=== PATIENT | female | born 1995 | race Caucasian/White ===

== ENCOUNTER 2017-05-21 00:31 | Inpatient (IN) | payer OTHER ==
[2017-05-21] VITALS (7 sets, daily range): BP systolic 96–141; BP diastolic 53–100
[~2017-05-21] VITALS: Ht 172.7 cm; Wt 56.2 kg
--- NOTE | 2017-05-21 01:00 | NUR ---
Pre-admission assessment Pre-admission assessment performed in the intake department of [facility]. Pt is A&O x4 and ambulatory with a steady gait. She does not appear intoxicated and answers all questions appropriately. Vital signs are B/P 116/64, HR 81, RR 16, O2 sat 98%, T 98.0, pain 0/10. She denies food or drug allergies. 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 Last used xanax 8mg on 05/20 at 2130. [facility].
[2017-05-21 01:25] LABS: *AMPHETAMINE, URINE NEGATIVE (NEGATIVE); *BARBITURATE, URINE NEGATIVE (NEGATIVE); *CANNABINOID, URINE POSITIVE (NEGATIVE); *COCCAINE, URINE NEGATIVE (NEGATIVE); *OPIATE, URINE NEGATIVE (NEGATIVE); *PHENCYCLIDINE SCREEN,URINE NEGATIVE (NEGATIVE); *URINE HCG, QUAL NEGATIVE (NEGATIVE)
[2017-05-21] MEDS ORDERED: LOPERAMIDE HCL 2 MG CAPSULE PO PRN ×2 (02:15)
[2017-05-21] MEDS ORDERED: ACETAMINOPHEN 325 MG TABLET PO PRN (02:15)
[2017-05-21] MEDS ORDERED: ONDANSETRON ODT 4 MG TAB.RAPDIS SL PRN (02:15)
[2017-05-21] MEDS ORDERED: IBUPROFEN 400 MG TABLET PO PRN (02:15)
[2017-05-21] MEDS ORDERED: HYDROXYZINE PAMOATE 25 MG CAPSULE PO PRN (02:15)
[2017-05-21] MEDS ORDERED: LORAZEPAM 1 MG TABLET PO PRN ×2 (02:15)
[2017-05-21] MEDS ORDERED: ONDANSETRON 4 MG/2 ML VIAL IM PRN (02:15)
[2017-05-21] MEDS ORDERED: MAGNESIUM HYDROXIDE 30 ML LIQUID UDC PO PRN (02:15)
[2017-05-21] MEDS ORDERED: LORAZEPAM 2 MG/1 ML VIAL IM PRN (02:15)
[2017-05-21] MEDS ORDERED: MAG HYDROX/AL HYDROX/SIMETH 30 ML LIQUID UDC PO PRN (02:15)
[2017-05-21] MEDS ORDERED: MIRALAX 17 GM POWD.PACK PO PRN (02:15)
[2017-05-21] MEDS ORDERED: DICYCLOMINE HCL 20 MG TABLET PO PRN (02:15)
[2017-05-21 02:28] LABS: BASOPHILS % (AUTO) 0.5 % (0.0-2.0); EOSINOPHILS # (AUTO) 0.2 K/uL (0.0-0.7); EOSINOPHILS % (AUTO) 2.4 % (0.0-7.0); HEMATOCRIT 38.8 % (37-47); LYMPHOCYTES # (AUTO) 3.8 K/UL (0.8-4.8); LYMPHOCYTES % (AUTO) 41.9 % (20.5-74.5); MEAN CORPUSCULAR HEMOGLOBIN 29.8 UUG (27.0-31.0); MEAN CORPUSCULAR HGB CONC 33 g/dL (32.0-37.0); MEAN CORPUSCULAR VOLUME 89.4 FL (81.0-99.0); MONOCYTES # (AUTO) 0.6 K/UL (0.1-1.30); MONOCYTES % (AUTO) 7.1 % (0-11); NEUTROPHILS # (AUTO) 4.5 K/UL (1.8-8.9); NEUTROPHILS % (AUTO) 48.1 % (31.5-64.5); PLATELET COUNT (AUTO) 282 K/UL (150-450); RED BLOOD CELL COUNT(AUTO) 4.34 MIL/UL (4.2-5.4); WHITE BLOOD COUNT (AUTO) 9.1 K/UL (4.0-11.2)
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
[2017-05-21] MEDS: diphenhydrAMINE 50 MG CAPSULE PO PRN (03:01)
--- NOTE | 2017-05-21 03:02 | NUR ---
PRN Vistaril and Benadryl administered Pt c/o feeling anxious and unable to relax to fall asleep. She is walking in the halls. COWS 4. PRN Benadryl and Vistaril administered.
[2017-05-21] MEDS ORDERED: HYDROXYZINE PAMOATE 25 MG CAPSULE ONE (03:04)
[2017-05-21] MEDS ORDERED: diphenhydrAMINE 50 MG CAPSULE ONE (03:04)
--- NOTE | 2017-05-21 04:02 | NUR ---
PRN Vistaril and Benadryl reassessment PRN Vistaril and Benadryl effective. Pt is lying comfortably in bed with lights off. She states "I'm feeling much better, thanks."
[2017-05-21 04:29] LABS: ETHANOL < 3 MG/DL (0-0)
[2017-05-21 04:35] LABS: ALANINE AMINOTRANSFERASE 24 U/L (14-59); ALKALINE PHOSPHATASE 55 U/L (50-136); AMYLASE 178 U/L (25-115); ASPARTATE AMINOTRANSFERASE 22 U/L (15-37); BILIRUBIN,TOTAL 0.2 mg/dL (0.2-1.0); CARBON DIOXIDE 28 mmol/L (21-32); CHLORIDE 104 mmol/L (98-107); CREATININE 0.8 mg/dL (0.6-1.3); GLUCOSE 92 mg/dL (74-106); LIPASE 161 U/L (73-393); MAGNESIUM 1.9 mg/dL (1.8-2.4); POTASSIUM 3.8 mmol/L (3.5-5.1); TOTAL PROTEIN, SERUM 7.2 g/dL (6.4-8.2); UREA NITROGEN, BLOOD 17 mg/dL (7-18)
[2017-05-21 04:46] LABS: THYROID STIMULATING HORMONE 3.279 mIU/mL (0.358-3.740)
[2017-05-21] MEDS ORDERED: ALBU2.5V38 IH (04:59)
--- NOTE | 2017-05-21 07:28 | NUR ---
END OF SHIFT Report provided to day shift nurse. Pt is lying in bed resting. She is a 21 yo female admitted to [facility] today at 0110 for BZD dependence. She is A&O and ambulatory. NKA, full code, regular diet. PRN Vistaril and Benadryl administered. Last CIWA was 1. She drank 500mL and slept for 2 hours.
--- NOTE | 2017-05-21 07:45 | NUR ---
START OF SHIFT Rcvd endorsement from ongoing nurse, clients is in bed, she presents with depressed mood, flat affect, skin moist/warm to touch, enlarged pupils,, flushed face, she reports restless legs and stomach cramps and decreased appetite. Encouraged client to drink fluid as tolerated to facilitate detox. Encourage client to attend group therapy for skills to maintain sobriety. Client admitted for Benzodiazepine withdrawal, She reports hx of withdrawal-induced seizure (2 wks ago). PRN Vistaril for anxiety and Benadryl for inability to sleep, client slept 2 hrs. Last COWS 1. NKDA, full code, regular diet. Call light within reach. Side rails x 2 up/padded. Will continue to monitor client.
[2017-05-21] MEDS ORDERED: DIAZEPAM 10 MG TABLET PO PRN ×4 (08:45→13:00)
[2017-05-21] MEDS ORDERED: DIAZEPAM 5 MG TABLET PO PRN ×2 (08:45→13:00)
[2017-05-21] MEDS ORDERED: GABAPENTIN 300 MG CAPSULE PO SCH (09:00)
[2017-05-21] MEDS: DIAZEPAM 10 MG TABLET PO SCH ×4 (09:46→20:48)
[2017-05-21] MEDS: MULTIVITAMINS,THERAPEUTIC TABLET PO SCH (09:46)
[2017-05-21] MEDS ORDERED: ALBUTEROL SULFATE 2.5 MG/3 ML NEBU IH PRN (10:41)
[2017-05-21] MEDS ORDERED: ALBUTEROL SULFATE 2.5 MG/3 ML NEBU IH SCH (10:45)
--- NOTE | 2017-05-21 11:12 | NUR ---
Therapist prompted client about group times. Client stated she would try to attend the 1530 group.
[2017-05-21] MEDS: GABAPENTIN 300 MG CAPSULE PO SCH (14:37)
--- NOTE | 2017-05-21 19:00 | NUR ---
END OF SHIFT Will endorse client to incoming nurse, client continues on 1 out of 5 day Valium taper, to alleviate withdrawal symptoms of withdrawal from benzodiazepine. Last CIWA 10. Client with anxiety, irritability, chills, fatigue, flushed face, abdominal cramps, emotional instability. Client continue to present with anxious mood, flat affect. Client was compliant with 2/3 of group therapy. Client is fully ambulatory. Adequate intake 755mL, void x 1. Pelvis/Transvaginal US done due to persistent vaginal bleeding starting on Jan 12, no results yet, client tolerated well. Client's vitals WNL's, she denied any dizziness. Hx of withdrawal-induced seizure (2 weeks ago). Call light within reach reach. Safety measures rendered and all needs met.
--- NOTE | 2017-05-21 20:15 | NUR ---
START OF SHIFT NOTE Pt is a 21 y/o female admitted for Xanax and Marijuana use and dependence. Pt has NKA but reported a PMH of Asthma, seizures r/t w/d, suicide, eating disorder, chlamydia, borderline personality disorder, manic bipolar, major depression, and anxiety. Per day shift nurse pt was placed on a 5 day Valium taper (day 1) and is tolerating medication well, with no s/e or a/r reported. Pt didn't receive any PRNS during the day shift. Last CIWA: 10. At this time pt is in her room. Pt is a/o x 4 with no changes in LOC. Lung auscultations are clear in all lobes, skin is dry and intact, bowel sounds present in all 4 quadrants, skon turgor indicates adequate hydration. During assessment pt is notably depressed aeb crying. Pt was encouraged to express her feelings and concerns. Pt was able to effectively verbalize her feelings and concerns and in return received proper nursing care including 1 on 1 therapy. Pt denies any pain/discomfort at this time. Pt was encouraged to continue expressing needs and concerns. Pt verbalized an understanding. All safety measures in place. Will continue to monitor.
[2017-05-21] MEDS: CLONIDINE HCL 0.1 MG TABLET PO PRN (20:48)
--- NOTE | 2017-05-21 20:48 | NUR ---
CLONIDINE PRN ADMINISTRATION Pt's blood pressure is 138/100. Pt denies any pain/discomfort, headache, nausea/vomiting, dizziness, or blurred vision. Pt received Clonidine 0.1 mg PO PRN to get blood pressure back within normal limits. Will continue to monitor.
--- NOTE | 2017-05-21 21:48 | NUR ---
CLONIDINE PRN REASSESSMENT Blood pressure now 136/88. PRN effective. Will continue to monitor.
[2017-05-22] VITALS: BP 98/58
[2017-05-22 04:00] VITALS: BP 107/69
[2017-05-22] MEDS: CLONIDINE HCL 0.1 MG TABLET PO PRN (04:44)
--- NOTE | 2017-05-22 04:44 | NUR ---
MOTRIN, BENTYL , AND CLONIDINE PRN ADMINISTRATION Pt reported a headache, stomach cramps, and anxiety. Motrin 400 mg PO PRN, Bentyl 20 mg PO PRN, and Clonidine 0.1 mg PO PRN was given via charge nurse. Will monitor for effectiveness.
--- NOTE | 2017-05-22 05:44 | NUR ---
MOTRIN, BENTYL, AND CLONIDINE PRN REASSESSMENT Pt stated " I'm okay now. I'm going back to sleep." PRNS effective. Will continue to monitor.
[2017-05-22 06:06] LABS: HEPATITIS B SURFACE AG Negative (Negative)
--- NOTE | 2017-05-22 06:53 | NUR ---
END OF SHIFT NOTE Pt is a 21 y/o female admitted for Xanax and Marijuana use and dependence. Pt has NKA but reported a PMH of Asthma, seizures r/t w/d, suicide, eating disorder, chlamydia, borderline personality disorder, manic bipolar, major depression, and anxiety. Pt continues on a 5 day Valium taper (day 2) and is tolerating medication well, with no s/e or a/r reported. Pt received Motrin 400 mg PO PRN, Bentyl 20 mg PO PRN, and Clonidine 0.1 mg PO PRN x 2 during the shift. Last CIWA: 3 (0400). Pt slept for a total of 7 hours. All safety measures in place. Endorsed to the oncoming nurse.
--- NOTE | 2017-05-22 07:45 | NUR ---
START OF SHIFT Rcvd endorsement from ongoing nurse, clients is in bed, she presents with anxious mood, flat affect, flushed face, she denies any N/V/D and reports restless legs, stomach cramps, irritability and fatigue. Encouraged client to drink fluid as tolerated to facilitate detox. Encourage client to attend group therapy for skills to maintain sobriety. Client admitted for Benzodiazepine withdrawal, She is on 2nd of 5 day Valium taper, tolerating well. She reports hx of withdrawal-induced seizure (2 wks ago). PRN Clonidine for anxiety and Bentyl for abdominal cramps, for inability to sleep, client slept 2 hrs. Last COWS 3 @ 0400. NKDA, full code, regular diet. Call light within reach. Side rails x 2 up/padded. Will continue to monitor client. Addendum: 05/23/17 at 0805 by DELVIN OTERO RN SERENA 3, NOT COWS, CLIENT IS ADMITTED FOR BENZODIAZEPINE WITHDRAWAL
[2017-05-22] MEDS: MULTIVITAMINS,THERAPEUTIC TABLET PO SCH (08:12)
[2017-05-22] MEDS: DIAZEPAM 10 MG TABLET PO SCH ×3 (08:12→21:14)
[2017-05-22] MEDS: GABAPENTIN 300 MG CAPSULE PO SCH ×3 (08:12→21:14)
[2017-05-22 08:14] VITALS: BP 119/76
[2017-05-22 08:36] LABS: BASOPHILS # (AUTO) 0.1 K/uL (0.0-8.0); BASOPHILS % (AUTO) 0.7 % (0.0-2.0); EOSINOPHILS # (AUTO) 0.2 K/uL (0.0-0.7); HEMATOCRIT 41.9 % (37-47); HEMOGLOBIN 13.8 G/DL (12.0-16.0); LYMPHOCYTES % (AUTO) 44.2 % (20.5-74.5); MEAN CORPUSCULAR HEMOGLOBIN 29.4 UUG (27.0-31.0); MEAN CORPUSCULAR HGB CONC 33 g/dL (32.0-37.0); MEAN CORPUSCULAR VOLUME 89.3 FL (81.0-99.0); MONOCYTES # (AUTO) 0.7 K/UL (0.1-1.30); MONOCYTES % (AUTO) 7.2 % (0-11); NEUTROPHILS # (AUTO) 4.1 K/UL (1.8-8.9); NEUTROPHILS % (AUTO) 45.9 % (31.5-64.5); PLATELET COUNT (AUTO) 317 K/UL (150-450); WHITE BLOOD COUNT (AUTO) 9.1 K/UL (4.0-11.2)
[2017-05-22] MEDS ORDERED: TUBERCULIN,PURIF.PROT.DERIV. 5 TU/0.1 ML TEST ID ONE (09:00)
--- NOTE | 2017-05-22 09:36 | NUR ---
TB test administered to L F/A, client tolerated well.
--- NOTE | 2017-05-22 10:00 | NUR ---
MD Notification US Pelvis, due to Vaginal bleeding, impression: 3cm right ovarian cyst otherwise normal pelvic ultrasound. NNO at this time. Client reports light vaginal bleeding, Vitals WNL, client denies any dizziness.
[2017-05-22] MEDS ORDERED: DIAZEPAM 10 MG TABLET PO ONE (11:45)
[2017-05-22 12:42] VITALS: BP 126/74
--- NOTE | 2017-05-22 15:56 | NUR ---
During assessment therapist prompted client about group times. Client stated she would try to go to the afternoon group.
[2017-05-22 16:44] VITALS: BP 119/85
--- NOTE | 2017-05-22 16:55 | NUR ---
Therapist prompted client to attend daily groups, and was reminded about group times. Client stated she would try to attend.
--- NOTE | 2017-05-22 18:08 | NUR ---
END OF SHIFT Will endorse client to incoming nurse, client continues on Valium taper, 2nd of 5 day, tolerating well. Client was admitted for withdrawal from benzodiazepine. Last CIWA 5. Client with anxiety, sweats, fine tremors and decreased appetite. Client continue to present with depressed mood, flat affect. Client was compliant with 2/3 of group therapy. Client is fully ambulatory. Adequate intake 755mL, void x 1. US Pelvis, due to Vaginal bleeding starting on Jan 12, '17, , impression: 3cm right ovarian cyst otherwise normal pelvic ultrasound. NNO at this time. Client reports light vaginal bleeding, Vitals WNL, client denies any dizziness. Hx of withdrawal-induced seizure (2 weeks ago). Call light within reach reach. Safety measures rendered and all needs met.
--- NOTE | 2017-05-22 19:05 | NUR ---
Start of Shift Patient received. Patient is in activities room participating in group meeting. Patient is a 21 year old male admitted on 05/21/17 for Benzo Dependence under the care of Dr. Luis. Patient is currently receiving 5 day Valium. Patient verbalizes no known allergies, wishes to be full code, following a regular diet, placed on fall and seizure precautions, skin noted intact. Past medical history noted as Asthma, seizure (11/2016 and two weeks ago), suicide attempt at the age of 16, Eating disorder, History of Chlamydia, borderline personality Disorder, manic Depression, Anxiety. Per endorsement, patient was given onetime dose of Valium 10mg x1. US Pelvis was ordered due to Vaginal bleeding starting on Dec 2016 which resulted with 3cm right ovarian cyst otherwise normal pelvic ultrasound. No New Orders at this time. Client reports light vaginal bleeding, Vitals WNL, client denies any dizziness. Patients last CIWA noted to be 5. All needs attended to promptly. Will continue plan of care as ordered.
[2017-05-22 20:00] VITALS: BP 103/71
[2017-05-22] MEDS ORDERED: GABAPENTIN 300 MG CAPSULE PO SCH (21:00)
[2017-05-23 00:27] VITALS: BP 127/83
[2017-05-23] MEDS: diphenhydrAMINE 50 MG CAPSULE PO PRN (01:12)
--- NOTE | 2017-05-23 01:15 | NUR ---
PRN Medication Administration Patient verbalizing inability of falling asleep. PRN Benadryl ordered. Offered to patient and patient verbalizing "is this a joke. I come in here taking all the benzos that i was and you give me one tab of Benadryl for sleep. this is not going to work." allowed patient to verbalize her feelings and offered support. patient agreed and took medication. will continue to monitor.
[2017-05-23 04:38] VITALS: BP 106/75
--- NOTE | 2017-05-23 07:05 | NUR ---
End of Shift Patient is in bed sleeping. Breathing even and non labored. No signs of pain or discomfort. Patient is a 21 year old male admitted on 05/21/17 for Benzo Dependence under the care of Dr. Luis. Patient is currently receiving 5 day Valium. Patient verbalizes no known allergies, wishes to be full code, following a regular diet, placed on fall and seizure precautions, skin noted intact. Past medical history noted as Asthma, seizure (11/2016 and two weeks ago), suicide attempt at the age of 16, Eating disorder, History of Chlamydia, borderline personality Disorder, manic Depression, Anxiety. Patient was given PRN Benadryl for inability of falling asleep. Medicaiton noted to be effective. Patient is requesting for MD to review sleep medications due to patient does not feel rested. Patients last CIWA noted to be 2. All needs attended to promptly. Will endorse to continue plan of care as ordered.
--- NOTE | 2017-05-23 07:58 | NUR ---
START OF SHIFT Rcvd endorsement from ongoing nurse, clients is in bed, she presents with irritable mood, flat affect, she states, "I had a horrible night, I was not able to sleep, you better do something different tonight." Skin moist to touch, she denies any N/V/D. She denies any SI/HI. Encouraged client to eat small portions of food and to increase fluid intake as tolerated. Encourage client to attend group therapy for skills to maintain sobriety. Client admitted for Benzodiazepine withdrawal, She is on 3rd of 5 day Valium taper, tolerating well. She reports hx of withdrawal-induced seizure (2 wks ago). PRN Benadryl for inability to sleep, client slept 4 hrs. Last CIWA 2 @ 2400. NKDA, full code, regular diet. Call light within reach. Side rails x 2 up/padded. Will continue to monitor client.
[2017-05-23 08:06] VITALS: BP 118/73
[2017-05-23] MEDS: DIAZEPAM 5 MG TABLET PO SCH ×4 (09:46→21:48)
[2017-05-23] MEDS: GABAPENTIN 300 MG CAPSULE PO SCH ×3 (09:46→21:48)
[2017-05-23] MEDS: MULTIVITAMINS,THERAPEUTIC TABLET PO SCH (09:47)
[2017-05-23] MEDS: DIVALPROEX 250 MG TABLET.DR PO SCH ×3 (11:43→16:22)
[2017-05-23 12:59] VITALS: BP 128/94
[2017-05-23] MEDS: CLONIDINE HCL 0.1 MG TABLET PO SCH ×2 (14:59→21:48)
[2017-05-23 16:55] VITALS: BP 104/72
--- NOTE | 2017-05-23 17:50 | NUR ---
Nursing notes Client reports itchiness on back, noted raised rash, skin intact, encourage client to not scratch site, she verbalized understanding. Notified MD and Charge nurse.
[2017-05-23] MEDS ORDERED: diphenhydrAMINE 2% 28.4 GM CREAM TP PRN (18:15)
[2017-05-23] MEDS ORDERED: diphenhydrAMINE 50 MG CAPSULE PO ONE (18:15)
[2017-05-23] MEDS ORDERED: HYDROXYZINE PAMOATE 25 MG CAPSULE PO PRN (18:15)
--- NOTE | 2017-05-23 18:25 | NUR ---
Dr. Mancia ordered Benadryl 50mg one time dose for pruritus and Diphenhydramine 2% cream PRN BID for itching on back area
--- NOTE | 2017-05-23 19:05 | NUR ---
Start of Shift Patient received. Patient is in bed sleeping. Breathing even and non labored. No signs of pain or discomfort. Patient is a 21 year old male admitted on 05/21/17 for Benzo Dependence under the care of Dr. Luis. Patient is currently receiving 5 day Valium. Patient verbalizes no known allergies, wishes to be full code, following a regular diet, placed on fall and seizure precautions, skin noted intact. Past medical history noted as Asthma, seizure (11/2016 and two weeks ago), suicide attempt at the age of 16, Eating disorder, History of Chlamydia, borderline personality Disorder, manic Depression, Anxiety. Per endorsement, patient was seen and evaluated by MD with changes to medications. Neurontin doses with increased and Clonidine changed to routine. Patient was given onetime dose of Benadryl and new order for Benadryl cream, Depakote TID. Last noted CIWA is 5. All needs attended to promptly. Will continue plan of care as ordered.
--- NOTE | 2017-05-23 19:07 | NUR ---
END OF SHIFT Will endorse client to incoming nurse, client continues on Valium taper, 3rd of 5 day, tolerating well. Client was admitted for withdrawal from benzodiazepine. Last CIWA 5 @ 1700. Dr Hu started depakote 250 mgs TID after discussing risks-benefits. Blanche ordered Benadryl 50mg one time dose for pruritus and Diphenhydramine 2% cream PRN BID for itching on back area. Increased Gabapentin 600 mg PO BID + 900 mg PO qHS, Clonidine 0.1 mg PO TID for hyperadrenergic symptoms of withdrawal; hold for BP<100/70 HR<70 or sedation. Client with anxiety, emotional, sweats, fine tremors and decreased appetite. Client continue to present with depressed mood, flat affect. Client was compliant with 2/3 of group therapy. Client is fully ambulatory. Adequate intake 1651mL, void x 3, stool x 1. She reports no vaginal bleeding today. Hx of withdrawal-induced seizure (2 weeks ago). Call light within reach reach. Safety measures rendered and all needs met.
[2017-05-23 21:10] VITALS: BP 100/65
[2017-05-24 00:20] VITALS: BP 110/62
[2017-05-24 04:00] VITALS: BP 102/61
--- NOTE | 2017-05-24 07:06 | NUR ---
End of Shift Patient is in bed sleeping. Breathing even and non labored. No signs of pain or discomfort noted. Patient is a 37 year old male admitted 05/21/17 for ETOH and Benzo Dependence. Patient verbalizes no known allergies, full code, regular diet, skin noted intact, placed on fall and seizure precautions. Patient was placed on a 5 day Ativan taper and modified 3 day Subutex taper. Patient noted with a past medical history of HTN and insomnia. No PRN medications administered. Last CIWA noted is 4 and COWS noted 4. All needs attended to promptly. Will endorse to continue plan of care as ordered. Addendum: 05/24/17 at 0708 by ELIEZER FRANCIS LVN ENTERED IN ERROR: WRONG PATIENT
--- NOTE | 2017-05-24 07:09 | NUR ---
End of Shift Patient is in bed sleeping. Breathing even and non labored. No signs of pain or discomfort. Patient is a 21 year old female admitted on 05/21/17 for Benzo Dependence under the care of Dr. Luis. Patient is currently receiving 5 day Valium. Patient verbalizes no known allergies, full code, regular diet, placed on fall and seizure precautions, skin noted intact. Past medical history noted as Asthma, seizure (11/2016 and two weeks ago), suicide attempt at the age of 16, Eating disorder, History of Chlamydia, borderline personality Disorder, manic Depression, Anxiety. No PRN medications administered. Patients last CIWA noted to be 4. All needs attended to promptly. Will endorse to continue plan of care as ordered.
--- NOTE | 2017-05-24 07:56 | NUR ---
START OF SHIFT NOTE Received report from night nurse, 21 year old male admitted on 05/21/17 for Benzo Dependence. Patient is currently receiving 5 day Valium. Patient verbalizes no known allergies, Full code,Regular diet, fall and seizure precautions in place, Pt reported PMH of Asthma, seizure (11/2016 and two weeks ago), suicide attempt at the age of 16, Eating disorder, History of Chlamydia, borderline personality Disorder, manic Depression, Anxiety. pt cont with Valium taper. Per endorsement pt did not receive any PRN, Last CIWA-4, Slept for 8 hours. Patient received awake, alert and oriented x4, educated regarding plan of care for the day and medication regimen with good verbal understanding. Safety measures in place. Will cont to monitor.
[2017-05-24 08:00] VITALS: BP 112/66
[2017-05-24] MEDS: DIAZEPAM 5 MG TABLET PO SCH ×3 (08:59→21:53)
[2017-05-24] MEDS: GABAPENTIN 300 MG CAPSULE PO SCH ×3 (08:59→21:53)
[2017-05-24] MEDS: MULTIVITAMINS,THERAPEUTIC TABLET PO SCH (08:59)
[2017-05-24] MEDS: CLONIDINE HCL 0.1 MG TABLET PO SCH ×3 (09:00→21:53)
[2017-05-24] MEDS: DIVALPROEX 250 MG TABLET.DR PO SCH ×3 (09:00→16:50)
[2017-05-24 12:00] VITALS: BP 116/75
[2017-05-24 16:00] VITALS: BP 94/60
--- NOTE | 2017-05-24 19:05 | NUR ---
END OF SHIFT NOTE Endorsed Pt to yoke presser nurse. Patient is AOX4. 21 year old male admitted on 05/21/17 for Benzo Dependence. Patient is currently receiving 5 day Valium. Patient verbalizes no known allergies, Full code,Regular diet, fall and seizure precautions in place, Pt reported PMH of Asthma, seizure (11/2016 and two weeks ago), suicide attempt at the age of 16, Eating disorder, History of Chlamydia, borderline personality Disorder, manic Depression, Anxiety. Pt cont with Valium taper tolerating well. Pt did not receive any PRN medications. Last CIWA-2. Patient encouraged to attend group therapies/sessions to learn new coping skills to prevent relapse, patient denies SI/HI. Safety measures in place. Call light kept within reach. Patient endorsed to yoke presser nurse in stable condition.
[2017-05-24 20:00] VITALS: BP 126/74
--- NOTE | 2017-05-24 20:00 | NUR ---
Start of Shift Pt is a 21 year old female admitted for Benzo dependnece, placed on 5 day Valium taper. Pt reported consuming Xanax 16-26mg/daily for 7 months. Pt also reported use of Marijuana. PMH: Asthma, seizures, suicide attempt at age 16, eating disorder, chlamydia (treated), borderline personality DO, Manic Bipolar, major depression and anxiety. NKA, regular diet, fall/seizure precautions and full code. Upon assessment, pt presents with anxiety, is in emotional volatility, skin noted with moderate sweat, reports mild chills, respirations even/unlabored, denies SOB/chest pain, bowel sounds active x4, abdomen soft. Safety measures in place, call light within reach, side rails up x2, bed locked and in low position. Will continue to monitor.
[2017-05-25] VITALS: BP 103/64
--- NOTE | 2017-05-25 | NUR ---
Vital Signs BP 103/64, pulse 63, respirations 16, SpO2 98%, temp 97.8, no pain rated 0/10 CIWA deferred d/t pt sleeping - to assess while pt is sleeping as ordered. Safety measures in place. Will continue to monitor.
[2017-05-25 04:00] VITALS: BP 95/56
--- NOTE | 2017-05-25 04:00 | NUR ---
Vital Signs BP 95/56, pulse 62, respirations 14, SpO2 98%, temp 97.9, no pain rated 0/10 CIWA deferred d/t pt sleeping - to assess while pt is sleeping as ordered. Safety measures in place. Will continue to monitor.
--- NOTE | 2017-05-25 07:00 | NUR ---
End of Shift Pt is a 21 year old female admitted for Benzo dependence, placed on 5 day Valium taper. Pt reported consuming Xanax 16-26mg/daily for 7 months. Pt also reported use of Marijuana. PMH: Asthma, seizures, suicide attempt at age 16, eating disorder, chlamydia (treated), borderline personality DO, Manic Bipolar, major depression and anxiety. NKA, regular diet, fall/seizure precautions and full code. During shift, pt presented with anxiety, is in emotional volatility, skin noted with moderate sweat, reports mild chills - scheduled taper medications administered, effective in management of s/s of withdrawal as reported per pt, CIWA 4. No PRN medications administered during shift. Pt slept for 4 hours, intake of 1086 ml PO, voids x1 and stool x0. Safety measures in place, call light within reach, side rails up x2, bed locked and in low position. Will continue to monitor.
--- NOTE | 2017-05-25 07:31 | NUR ---
BEGINNING OF SHIFT Patient endorsement report received from trauma counsellor nurse, all pertinent information discussed. Patient is a 21 year old female admitted on: 05/21/2017, with admitting Dx: BZO dependence, Patient currently with ongoing taper of 5 day Valium, and is on day 4 of taper. will monitor cow/ciwa scores and vital signs closely. As per trauma counsellor patient received no PRNs during shift. fall and seizure precautions observed closely at all times. Patient slept for 4 hours., as per trauma counsellor last ciwa score of: 2. Patient received, awake alert and oriented x4. Educated regarding plan of care for the day and medication regimen. Safety measures in place. Fall and seizure precautions observed at all times. Will continue to monitor closely.
[2017-05-25 08:22] VITALS: BP 97/60
--- NOTE | 2017-05-25 09:06 | NUR ---
Therapist prompted client about group times. Client stated she would attend both therapy groups.
[2017-05-25] MEDS: DIVALPROEX 250 MG TABLET.DR PO SCH ×3 (09:29→16:30)
[2017-05-25] MEDS: DIAZEPAM 5 MG TABLET PO SCH ×2 (09:30→21:17)
[2017-05-25] MEDS: MULTIVITAMINS,THERAPEUTIC TABLET PO SCH (09:30)
[2017-05-25] MEDS: CLONIDINE HCL 0.1 MG TABLET PO SCH ×3 (09:33→21:16)
[2017-05-25] MEDS: GABAPENTIN 300 MG CAPSULE PO SCH ×3 (09:37→21:16)
[2017-05-25 12:30] VITALS: BP 139/97
[2017-05-25 16:23] VITALS: BP 130/89
--- NOTE | 2017-05-25 16:57 | NUR ---
Endorsement received from previous nurse.
--- NOTE | 2017-05-25 16:57 | NUR ---
ENDORSED CARE Patient alert and oriented x4, vital signs were stable during shift. Patient with admitting Dx: BZO dependence, currently with ongoing taper OF 5 day Valium and is currently on day 4 of taper, well tolerated, no ASE noted. continues under close observation. Patient compliant with therapeutic plan of care. During shift, patient was noted with one episodes of tearfulness, encouraged to express feeling, provided with calming reassurance with help. Patient 0900 assessment presented with: barely sweating, anxiety with ciwa score of: 4. 1300 assessment patient presented with: barely sweating, anxiety with ciwa score of: 4. 1700 assessment patient presented with: barely sweating, anxiety with ciwa score of: 4. All due medications administered as ordered, well tolerated, no ASE noted. No PRN medications were administered during shift. Fall and seizure precautions observed at all times. Patient encouraged to attend group therapies/sessions to learn new coping skills to prevent relapse, denies SI/HI. Patients safety measures in place. Call light kept with in reach, fall and seizure precautions observed at all times. all needs met and rendered. Patient endorsed to, nurse, all pertinent information discussed.
--- NOTE | 2017-05-25 18:59 | NUR ---
End of Shift Endorsement given to nightshift nurse. Pt is a 21 y/o female admitted for Xanax dependence. Pt is on a 5 day valium taper. PT is tolerating the taper AEB CIWA 3 at 1600. Intake: 1450ml, Void x2, BM x1. PT is alert and oriented x4. Pt is in STABLE condition at this time. Remains compliant with medication and diet regimen. All needs have been met, All safety measures in place per hospital policy. Bed in lowest position, side rails up x2, call-light within reach. Will continue to monitor
[2017-05-25 20:00] VITALS: BP 129/62
--- NOTE | 2017-05-25 20:00 | NUR ---
Start of Shift Pt is a 21 year old female admitted for Benzo dependence, placed on 5 day Valium taper. Pt reported consuming Xanax 16-26mg/daily for 7 months. Pt also reported use of Marijuana. PMH: Asthma, seizures, suicide attempt at age 16, eating disorder, chlamydia (treated), borderline personality DO, Manic Bipolar, major depression and anxiety. NKA, regular diet, fall/seizure precautions and full code. Upon assessment, pt presents with anxiety, skin clammy/flushed, reports mild aches throughout body, respirations even/unlabored, denies SOB/chest pain, bowel sounds active x4, abdomen soft. Safety measures in place, call light within reach, side rails up x2, bed locked and in low position. Will continue to monitor.
[2017-05-26] VITALS: BP 109/69
--- NOTE | 2017-05-26 | NUR ---
Vital Signs BP 109/69, pulse 69, respirations 18, SpO2 100%, temp 97.9, no pain 0/10 CIWA deferred d/t pt sleeping to assess while pt is awake as ordered Safety measures in place. Will continue to monitor.
--- NOTE | 2017-05-26 04:00 | NUR ---
Pt refused to be woken up for 0400 VS CIWA deferred d/t pt sleeping to assess while pt is awake as ordered Safety measures in place. Will continue to monitor.
--- NOTE | 2017-05-26 07:00 | NUR ---
End of Shift Pt is a 21 year old female admitted for Benzo dependence, placed on 5 day Valium taper. Pt reported consuming Xanax 16-26mg/daily for 7 months. Pt also reported use of Marijuana. PMH: Asthma, seizures, suicide attempt at age 16, eating disorder, chlamydia (treated), borderline personality DO, Manic Bipolar, major depression and anxiety. NKA, regular diet, fall/seizure precautions and full code. During shift, pt presented with anxiety, skin clammy/flushed, reports mild aches throughout body - scheduled taper medications administered, effective in management of s/s of withdrawal as reported per pt, as evidenced by CIWA 2. No PRN medications administered during shift. Pt slept for 5 hours, intake of 2132 ml PO, voids x2 and stool x1. Safety measures in place, call light within reach, side rails up x2, bed locked and in low position. Endorsed to day shift.
--- NOTE | 2017-05-26 07:26 | NUR ---
BEGINNING OF SHIFT Patient endorsement report received from security shift manager nurse, all pertinent information discussed. Patient is a 21 year old female admitted on: 05/21/2017, with admitting Dx: BZO dependence, Patient currently with ongoing taper of 5 day Valium, and is on day 5 of taper. will monitor ciwa scores and vital signs closely. As per security shift manager patient received no PRNs during shift. fall and seizure precautions observed closely at all times. Patient slept for 5 hours., as per security shift manager last ciwa score of: 2. Patient received, awake alert and oriented x4. Educated regarding plan of care for the day and medication regimen. Safety measures in place. Fall and seizure precautions observed at all times. Will continue to monitor closely.
[2017-05-26 08:04] VITALS: BP 103/60
[2017-05-26] MEDS: GABAPENTIN 300 MG CAPSULE PO SCH ×3 (09:02→20:07)
[2017-05-26] MEDS: MULTIVITAMINS,THERAPEUTIC TABLET PO SCH (09:03)
[2017-05-26] MEDS: DIVALPROEX 250 MG TABLET.DR PO SCH ×3 (09:03→16:25)
[2017-05-26] MEDS: CLONIDINE HCL 0.1 MG TABLET PO SCH ×3 (09:04→20:07)
[2017-05-26] MEDS ORDERED: CLON0.1T14 PO (11:14)
[2017-05-26] MEDS ORDERED: GABA-534 PO ×2 (11:14)
[2017-05-26] MEDS ORDERED: HYDR-3895 PO (11:14)
[2017-05-26] MEDS ORDERED: DIVA250T4 PO (11:14)
[2017-05-26] MEDS ORDERED: DIPH50CA37 PO (11:14)
[2017-05-26] MEDS ORDERED: IBUP-1953 PO (11:14)
[2017-05-26] MEDS ORDERED: DICY20TA28 PO (11:14)
[2017-05-26 12:24] VITALS: BP 121/68
[2017-05-26 17:25] VITALS: BP 113/69
--- NOTE | 2017-05-26 18:55 | NUR ---
END OF SHIFT Patient alert and oriented x4, vital signs were stable during shift. Patient with admitting Dx: BZO dependence, currently with ongoing taper OF 5 day Valium and is currently on day 5 of taper, well tolerated, no ASE noted. continues under close observation. Patient compliant with therapeutic plan of care. Patient 0900 assessment presented with: moderate anxiety with ciwa score of: 4; 1300 assessment patient presented with anxiety with ciwa score of: 3; 1700 assessment patient presented with: anxiety with ciwa score of: 3. Patient is scheduled to be discharged tomorrow, noted self motivated towards sobriety. All due medications administered as ordered, well tolerated, no ASE noted. No PRN medications were administered during shift. Fall and seizure precautions observed at all times. Patient encouraged to attend group therapies/sessions to learn new coping skills to prevent relapse, denies SI/HI. Patients safety measures in place. Call light kept with in reach, fall and seizure precautions observed at all times. all needs met and rendered. Patient endorsed to, night court magistrate nurse, all pertinent information discussed.
[2017-05-26 19:17] LABS: *AMPHETAMINE, URINE NEGATIVE (NEGATIVE); *BARBITURATE, URINE NEGATIVE (NEGATIVE); *CANNABINOID, URINE POSITIVE (NEGATIVE); *COCCAINE, URINE NEGATIVE (NEGATIVE); *OPIATE, URINE NEGATIVE (NEGATIVE); *PHENCYCLIDINE SCREEN,URINE NEGATIVE (NEGATIVE)
[2017-05-26 20:00] VITALS: BP 128/83
--- NOTE | 2017-05-26 20:00 | NUR ---
Start of Shift Pt is a 21 year old female admitted for Benzo dependence, placed on 5 day Valium taper - completed. Pt reported consuming Xanax 16-26mg/daily for 7 months. Pt also reported use of Marijuana. PMH: Asthma, seizures, suicide attempt at age 16, eating disorder, chlamydia (treated), borderline personality DO, Manic Bipolar, major depression and anxiety. NKA, regular diet, fall/seizure precautions and full code. Upon assessment, pt presents with anxiety, respirations even/unlabored, denies SOB/chest pain, bowel sounds active x4, abdomen soft. Pt is scheduled for discharged tomorrow. Safety measures in place, call light within reach, side rails up x2, bed locked and in low position. Will continue to monitor.
--- NOTE | 2017-05-26 21:10 | NUR ---
PRN Administration 2109 Pt vomited x2 while in the patio. Pt brought up to room. Zofran 4mg ODT administered for reports of nausea. Safety measures in place. Will continue to monitor.
--- NOTE | 2017-05-26 22:10 | NUR ---
PRN Reassessment Upon reassessment, pt reports no vomiting reports, with relief of nausea. Needs met. safety measures in place. will continue to monitor.
[2017-05-27] VITALS: BP 105/68
--- NOTE | 2017-05-27 00:22 | NUR ---
PRN Administration Pt reports itching in upper back, Anti-itch cream PRN administered. Pt reported feeling anxious, Vistaril 50mg PRN administered. Safety measures in place. Will continue to monitor.
--- NOTE | 2017-05-27 01:22 | NUR ---
PRN Reassessment Upon reassessment, pt is sleeping, no s/s of acute distress noted, respirations even/unlabored. Safety measures in place, will continue to monitor.
--- NOTE | 2017-05-27 07:00 | NUR ---
End of Shift Pt is a 21 year old female admitted for Benzo dependence, placed on 5 day Valium taper - completed. Pt reported consuming Xanax 16-26mg/daily for 7 months. Pt also reported use of Marijuana. PMH: Asthma, seizures, suicide attempt at age 16, eating disorder, chlamydia (treated), borderline personality DO, Manic Bipolar, major depression and anxiety. NKA, regular diet, fall/seizure precautions and full code. During shift, pt presented with anxiety - scheduled medications administered, CIWA 1. Zofran 4mg ODT administered for vomiting episode x2 in the patio, effective. Vistaril 50mg RPN and Anti-itch cream administered for anxiety and reports of itch in upper back area. Pt scheduled for discharge today. Pt slept for 4 hours, intake of 736 ml PO, voids x2 and stool x0. Safety measures in place, call light within reach, side rails up x2, bed locked and in low position. Endorsed to day shift nurse.
--- NOTE | 2017-05-27 07:15 | NUR ---
start of shift note: received pt from [employer]nc machinist 2nd shift nurse, pt is in stable condition at this time, pt is admitted to [facility] for benzo withdrawal/dependence. pt is set to discharge today. will assist pt in discharging and will continue to monitor pt for any changes. pts last ciwa 1.
[2017-05-27 09:17] VITALS: BP 100/60
[2017-05-27] MEDS: CLONIDINE HCL 0.1 MG TABLET PO SCH (09:17)
[2017-05-27] MEDS: DIVALPROEX 250 MG TABLET.DR PO SCH (09:17)
[2017-05-27] MEDS: MULTIVITAMINS,THERAPEUTIC TABLET PO SCH (09:17)
[2017-05-27] MEDS: GABAPENTIN 300 MG CAPSULE PO SCH (09:18)
--- NOTE | 2017-05-27 10:04 | NUR ---
discharge note: pt left the unit in stable condition no s/s of pain,discomfort or any withdrawal symptoms. pt teaching administered and pt verbalized understanding. V/S WNL. pt will be transferred to [facility] via private car
== END 2017-05-27 10:04 | DRG 895 ==
LOC: SRC 00:31
PROVIDERS: ADMIT Internal Medicine; ATTEND Internal Medicine
PROC: HZ41ZZZ Group Counseling for Substance Abuse Treatment, Behavioral (ICD-10-PCS; principal; 2017-05-21)
PROC: HZ2ZZZZ Detoxification Services for Substance Abuse Treatment (ICD-10-PCS; principal; 2017-05-21)
PROC: HZ31ZZZ Individual Counseling for Substance Abuse Treatment, Behavioral (ICD-10-PCS; 2017-05-22)
DX: F13.230 Sedative, hypnotic or anxiolytic dependence with withdrawal, uncomplicated (principal); F50.00 Anorexia nervosa, unspecified; F41.9 Anxiety disorder, unspecified; Z91.5 Personal history of self-harm; Z83.2 Family history of diseases of the blood and blood-forming organs and certain disorders involving the immune mechanism; Z82.49 Family history of ischemic heart disease and other diseases of the circulatory system; F17.210 Nicotine dependence, cigarettes, uncomplicated; J45.20 Mild intermittent asthma, uncomplicated; F60.3 Borderline personality disorder; F12.90 Cannabis use, unspecified, uncomplicated; G47.00 Insomnia, unspecified; N92.1 Excessive and frequent menstruation with irregular cycle; Z87.42 Personal history of other diseases of the female genital tract
CPT/HCPCS: 36415; 70030-TC; 76856; 80307; 80346; 80349; 83690; 83735; 84443; 84703; 85025; 86580; 86592; 86705; 86803; 87340; 87806; A4663; G0480; J3490; Q0162; Q0163